=== PATIENT | female | born 1970 | race Caucasian/White ===

== ENCOUNTER 2017-03-28 09:22 | Day surgery (SDC) | payer OTHER ==
[2017-03-28] VITALS (11 sets, daily range): BP systolic 101–142; BP diastolic 51–80; PULSE 61–70; RESP 15–22; Ht 160 cm; Wt 1.0 kg
[~2017-03-28] VITALS: Ht 160 cm; Wt 1.0 kg
[~2017-03-28 09:22] MED LIST: CEFAZOLIN 1 GM INJ ONE; CEFAZOLIN 2 GM/50 ML (PMX) 50 ML IVPB ONE; SOD CHLORIDE 0.9% 1,000 ML IV SCH
[2017-03-28] MEDS ORDERED: LEVO88TA3 PO (10:30)
[2017-03-28] MEDS ORDERED: OMEP20CA16 PO (10:30)
[2017-03-28] MEDS ORDERED: ONDANSETRON 4 MG INJ ONE (12:22)
[2017-03-28] MEDS ORDERED: LIDOCAINE 2% (MDV) 20 ML INJ ONE (12:23)
[2017-03-28] MEDS ORDERED: BUPIVACAINE 0.5% (SDV) 30 ML INJ ONE (12:23)
--- NOTE | 2017-03-28 12:59 | OPR ---
Date/Time of Note Date/Time of Note DATE: 03/28/17 TIME: 12:56 Operative Report Procedure Date: Mar 28, 2017 Preoperative Diagnosis right leg and back mass Postoperative Diagnosis same Operation Performed 1. excision of back mass 3 cm incisions and 3 x 1 cm mass 2. excision of right leg mass 2 cm incision and 2 x 1 cm mass 3. localized adjacent tissue transfer with the use of skin flaps of 5 sq cm defect 4. therapeutic injection [place] [address] Surgeon: Justin SMALLS Specimens back mass and right leg mass Procedure Description Patient is taken to the OR and prepped and draped in usual sterile fashion. Surgical timeout was performed IV antibiotics are given. Local anesthesia was infiltrated into the back mass and the right leg mass. 15 blade is used to make an elliptical incision over the back mass. Dissection cautery was carried out the mass was circumferentially excised. Due to tissue defect localized adjacent tissue transfer with these of skin flaps was performed. Attention was paid to the right leg mass. 15 blade is used to make an elliptical incision around the mass. The mass was circumferentially excised using cautery. There is good hemostasis due to tissue defect localized adjacent tissue transfer to the skin flaps were performed. Closure with running 4-0 Monocryl. Dry dressings were applied. Justin SMALLS Mar 28, 2017 12:59
[2017-03-28] MEDS ORDERED: ACETAMINOPHEN/CODEINE #3 TAB PO ONE (13:00)
[2017-03-28] MEDS ORDERED: OXYCODONE/ACETAMINOPHEN (5/325) TAB PO PRN ×2 (13:00)
== END 2017-03-28 14:24 | disposition home or self-care (01) ==
LOC: SDS 09:22
PROVIDERS: ATTEND Surgery
DX: L72.11 Pilar cyst (principal); D23.71 Other benign neoplasm of skin of right lower limb, including hip
CPT/HCPCS: 14020; 88307; J0690; J2405; J3010

== ENCOUNTER 2018-10-09 08:44 | Day surgery (SDC) | payer OTHER ==
[2018-10-08 16:49] VITALS: BMI 31.2
[~2018-10-09] VITALS: Ht 160 cm; Wt 78.3 kg
[2018-10-09] VITALS (11 sets, daily range): BP systolic 106–128; BP diastolic 52–71; PULSE 69–93; RESP 16–23; Ht 160 cm; Wt 78.3 kg
[~2018-10-09 08:44] MED LIST changes: -CEFAZOLIN 1 GM INJ ONE; -CEFAZOLIN 2 GM/50 ML (PMX) 50 ML IVPB ONE; +DEXAMETHASONE 4 MG/ML 5 ML INJ ONE; +LEVO88TA3 PO; +METOCLOPRAMIDE 10 MG INJ ONE; +OMEP20CA16 PO; +SEVOFLURANE 15 MIN ONE; -SOD CHLORIDE 0.9% 1,000 ML IV SCH
[2018-10-09] MEDS ORDERED: CHOL100062 PO (09:43)
[2018-10-09] MEDS ORDERED: LIDOCAINE 1%/EPI (1:100,000) (MDV) 20 ML ONE (13:09)
[2018-10-09] MEDS ORDERED: POLYMYXIN/BACITRACIN 1L IRRIG ONE (13:09)
--- NOTE | 2018-10-09 13:53 | PREAC ---
Date/Time of Note Date/Time of Note DATE: 10/09/18 TIME: 13:52 Anesthesia Eval and Record Evaluation Time Pre-Procedure Interview DATE: 10/09/18 TIME: 13:52 Age 48 Sex female NPO: 8 hrs Preoperative diagnosis stress incontinence Planned procedure vaginal sling Past Medical History Past Medical History: None Surgery & Anesthesia Issues No known issue Meds Anticoagulation: No Beta Killian within 24 hr: No Reason Beta Ikllian not given: Pt. not on B-Killian Reported Medications Cholecalciferol* (Vitamin D3*) 1,000 Unit Tablet, 2000 UNIT PO DAILY, TAB 10/09/18 Omeprazole* (Omeprazole*) 20 Mg Capsule.dr, 20 MG PO DAILY, #30 CAP 03/28/17 Levothyroxine Sodium* (Levothyroxine Sodium*) 88 Mcg Tablet, 88 MCG PO BEFORE BREAKFAST, #30 TAB 03/28/17 Current Medications Influenza Virus Vaccine Quadrival (Fluzone) 0.5 ml ONCE ONCE IM* ; Start 10/10/18 at 09:00; Stop 10/10/18 at 09:01 Meds reviewed: Yes Allergies Coded Allergies: No Known Drug Allergies (Unverified Allergy, Unknown, 10/09/18) Allergies Reviewed: Yes Labs/Studies Labs Reviewed: Reviewed by anesthesiologist Result Diagram: 10/09/18 1000 10/09/18 1000 Laboratory Tests 10/09/18 10:00 test: Negative Studies: ECG Pre-procedure Exam Last vitals Vital Signs Date Temp Pulse Resp B/P (MAP) Pulse Ox O2 O2 Flow FiO2 Time Delivery Rate 10/09/18 97.7 69 16 106/56 100 Room Air 10:14 (73) Airway: Adequate mouth opening, Adequate thyromental dist Mallampati: Mallampati III Teeth: Normal Lung: Normal Heart: Normal ASA Physical Status ASA physical status: 2 Emergency: None Planned Anesthetic General/MAC: LMA Planned Pain Management Parenteral pain med, Local by surgeon Pre-operative Attestations Prior to commencing anesthesia and surgery, the patient was re-evaluated, there was verification of: *The patient's identity *The results of appropriate recent lab work and preoperative vital signs *The above evaluation not changing prior to induction *Anesthetic plan, risk benefits, alternative and complications discussed with patient/family; questions answered; patient/family understands, accepts and wishes to proceed. DREA BEASLEY MD Oct 09, 2018 13:53
[2018-10-09] MEDS ORDERED: FENTAnyl 50 MCG/ML VIAL ONE (13:55)
[2018-10-09] MEDS ORDERED: ONDANSETRON 4 MG INJ ONE (13:56)
[2018-10-09] MEDS ORDERED: MIDAZOLAM 1 MG/ML 2 ML INJ ONE (13:56)
[2018-10-09] MEDS ORDERED: LIDOCAINE 2% (SDV) 5 ML INJ ONE (13:56)
[2018-10-09] MEDS ORDERED: PROPOFOL 20 ML ONE (13:56)
[2018-10-09] MEDS ORDERED: HYDROmorphONE 1 MG/5 ML IV SYRINGE IV PRN ×2 (14:00)
[2018-10-09] MEDS ORDERED: FENTAnyl 50 MCG/ML VIAL IV PRN ×2 (14:00)
[2018-10-09] MEDS ORDERED: LEVALBUTEROL (NEB) 1.25 MG/0.5 ML AMP HHN PRN (14:00)
[2018-10-09] MEDS ORDERED: LORAZEPAM 2 MG INJ IV PRN (14:00)
[2018-10-09] MEDS ORDERED: ONDANSETRON 4 MG INJ IV PRN (14:00)
[2018-10-09] MEDS ORDERED: DIPHENHYDRAMINE 50 MG INJ IV PRN (14:00)
[2018-10-09] MEDS ORDERED: MIDAZOLAM 1 MG/ML 2 ML INJ IV PRN (14:00)
[2018-10-09] MEDS ORDERED: MEPERIDINE 25 MG INJ IV PRN (14:00)
[2018-10-09] MEDS ORDERED: KETOROLAC 30 MG INJ IV PRN (14:00)
--- NOTE | 2018-10-09 14:01 | HP ---
DATE OF ADMISSION: 10/09/2018 CHIEF COMPLAINT: Urinary leakage. HISTORY OF PRESENT ILLNESS: This is a 48-year-old female who has a history of urinary leakage. She reports that she leaks urine with sneezing, coughing, urgency and with intercourse. It is very bothe rsome to the patient. The patient has had this problem for the last 3 years ____ with cough, sneeze and sex. She occasionally has some urgency leak which is not as bothersome. She has taken oxybutyni n without resolution of her symptoms. The patient also complains of frequency, urgency, nocturia whi ch are worrisome with fluids. Her workup is as follows: In 11/2017 cystoscopy revealed normal bladder, no bladder neck contracture , urethral strictures. In 01/2018 urodynamics revealed early sensation of bladder filling; otherwise , normal bladder capacity, no instability. In 06/2018, the patient underwent another cystoscopy reve aling 250 mL bladder capacity. She did not leak with cough. PAST MEDICAL HISTORY: Herpes, gastritis, hypothyroidism, heart problem. PAST SURGICAL HISTORY: In 2002 had eye surgery, right knee cyst removal. FAMILY HISTORY: No history of cancer. SOCIAL HISTORY: The patient does not drink or smoke. ALLERGIES: THE PATIENT HAS UNSPECIFIC ____ LIKE ANESTHESIA ALLERGY, UNKNOWN EXACTLY WHAT THIS ENTAIL S. CURRENT MEDICATIONS: 1. Glucosamine. 2. Herbal medication for menopause. 3. Omeprazole. 4. Synthroid. PHYSICAL EXAMINATION: CONSTITUTIONAL: The patient appears to be in no acute distress. GASTROINTESTINAL: Abdomen is soft. Normal bowel sounds, nondistended, nontender. Hernia exam none noted. Liver and spleen are normal. GENITOURINARY: Kidneys have no CVA tenderness. Bladder has no fullness. Vaginal exam in my office revealed no cystocele. Urethra appeared to be normal. Urethral meatus was also normal in location. ASSESSMENT: 1. Stress urinary incontinence. 2. Urinary frequency and urgency. RECOMMENDATIONS: I have spoken with the patient in detail about the natural history biology and grad ing of stress incontinence. We have discussed various treatment options. Among these options, she u nderstands her choices include, but not limited to Kiegel exercises, transvaginal surgery, transabdom inal surgeries, wearing pads, urethral bulking agents. Among these options I have recommended, the p leatha has elected to undergo a transvaginal mid-urethral transobturator sling procedure with mesh an d cystoscopy. This procedure has been explained to the patient in detail. Risks and benefits have b een discussed. All of her questions have been answered. She understands that risks include, but not limited to infection, bleeding, damage to adjacent structures, heart problems, lung problems, possib ility of need for further surgery, DVT, PE, MS, CVA, nonresolution of symptoms, reoccurrence of sympt oms, need for other treatments, need for other surgeries, worsening of her frequency and urgency, con tinued urine leak, mesh erosion into various pelvic organs such as bowel, bladder, urethra, vagina, p ainful sexual intercourse, dissatisfaction with surgery. All of the patient's questions have been an swered, no guarantees given. She would like to proceed. Dictated By: NOE PUGH MD SR/NTS Conf#: [id number] DID#: [id number]
[2018-10-09] MEDS ORDERED: HYDROmorphONE 2 MG/ML SYG ONE (14:48)
[2018-10-09] MEDS ORDERED: CEFAZOLIN 1 GM INJ ONE (14:48)
--- NOTE | 2018-10-09 15:02 | SIPON ---
Date/Time of Note Date/Time of Note DATE: 10/09/18 TIME: 15:00 Operative Report Preoperative Diagnosis stress incontinence Postoperative Diagnosis stress incontinence Operation/Procedure Performed vaginal sling + mesh (transobturator) Surgeon see signature line assistant to the director none Anesthesia: general Estimated blood loss: 50 - 100 ml's Transfusion Required none Specimen none Grafts/Implants Mid urethral mesh ([employer] obtryx transobturator mesh) Complications none NOE PUGH Oct 09, 2018 15:02
--- NOTE | 2018-10-09 15:03 | PDOCDIS ---
Discharge Instructions DIAGNOSIS Discharge Diagnosis stress incontinence CONDITION [id number] Patient Condition: [id number] Good HOME CARE INSTRUCTIONS: [id number] Diet Instructions: [id number] Regular ACTIVITY: [id number] Activity Restrictions: [id number] Slowly Increase Activity Avoid heavy lifting No Sexual Activity [id number] Bathing Restrictions: [id number] Shower FOLLOW UP/APPOINTMENTS Follow-up Plan 1 week NOE Bowser Oct 09, 2018 15:03
--- NOTE | 2018-10-09 15:08 | DS ---
Date/Time of Note Date/Time of Note DATE: 10/09/18 TIME: 15:03 Discharge Summary Admission/Discharge Info Admit Date/Time 10/09/18 Discharge Date/Time 10/09/18 Discharge Diagnosis stress incontinence Patient Condition: Good Consults none Procedures transobturator mid urethral vaginal sling + mesh Cystoscopy Hx of Present Illness pt with hx of urine leak with sneeze/cough and sex Hospital Course Pt underwent above listed operation. Once pt was stable, tolerating diet, remaining afebrile and pain was well controlled, she was DC'd home Pt was given Rx for Tylenol 3 and cipro Home Meds Reported Medications Cholecalciferol* (Vitamin D3*) 1,000 Unit Tablet, 2000 UNIT PO DAILY, TAB 10/09/18 Omeprazole* (Omeprazole*) 20 Mg Capsule., 20 MG PO DAILY, #30 CAP 03/28/17 Levothyroxine Sodium* (Levothyroxine Sodium*) 88 Mcg Tablet, 88 MCG PO BEFORE BREAKFAST, #30 TAB 03/28/17 Follow-up Plan [address] candelaria office Primary Care Provider Not On Staff Doctor Time spent on discharge: < 30 minutes (Pt given Rx for Tylenol 3 and cipro) Pending Labs Laboratory Tests Test 10/09/18 10:00 White Blood Count 6.6 10^3/ul (4.8-10.8) Red Blood Count 4.51 10^6/ul (4.20-5.40) Hemoglobin 13.7 g/dl (12.0-16.0) Hematocrit 41.3 % (37.0-47.0) Mean Corpuscular Volume 91.6 fl (82.0-101.0) Mean Corpuscular Hemoglobin 30.4 pg (29.0-33.0) Mean Corpuscular Hemoglobin Concent 33.2 g/dl (32.0-37.0) Red Cell Distribution Width 13.6 % (11.5-14.5) Platelet Count 259 10^3/UL (140-415) Mean Platelet Volume 11.2 fl (7.4-10.4) Immature Granulocytes % 0.200 % (0.001-0.429) Neutrophils % 69.8 % (39.0-77.0) Lymphocytes % 21.7 % (15.0-51.0) Monocytes % 6.4 % (0.0-11.0) Eosinophils % 1.4 % (0.0-7.0) Basophils % 0.5 % (0.0-2.0) Nucleated Red Blood Cells % 0.0 /100WBC (0.0-0.0) Immature Granulocytes # 0.010 10^3/ul (0.0-0.031) Neutrophils # 4.6 10^3/ul (1.6-7.5) Lymphocytes # 1.4 10^3/ul (0.8-2.9) Monocytes # 0.4 10^3/ul (0.3-0.9) Eosinophils # 0.1 10^3/ul (0.0-0.5) Basophils # 0.0 10^3/ul (0.0-0.1) Nucleated Red Blood Cells # 0.0 10^3/ul (0.0-0.0) Prothrombin Time 11.8 Sec (11.9-14.9) Prothrombin Time Ratio 0.9 INR International Normalized Ratio 0.86 Activated Partial Thromboplast Time 26.9 Sec (23.0-35.0) Sodium Level 139 mmol/L (135-144) Potassium Level 4.3 mmol/L (3.5-5.1) Chloride Level 101 mmol/L (97-110) Carbon Dioxide Level 27 mmol/L (21-31) Anion Gap 11 (5-13) Blood Urea Nitrogen 18 mg/dl (7-20) Creatinine 0.61 mg/dl (0.44-1.00) Est Glomerular Filtrat Rate mL/min > 60 mL/min (>60) Glucose Level 97 mg/dl (70-220) Calcium Level 9.1 mg/dl (8.4-10.2) Total Bilirubin 0.3 mg/dl (0.2-1.3) Direct Bilirubin 0.00 mg/dl (0.00-0.20) Indirect Bilirubin 0.3 mg/dl (0-1.1) Aspartate Amino Transf (AST/SGOT) 32 IU/L (15-46) Alanine Aminotransferase (ALT/SGPT) 18 IU/L (13-69) Alkaline Phosphatase 58 IU/L (42-121) Total Protein 8.3 g/dl (6.1-8.1) Albumin 4.5 g/dl (3.3-4.9) Globulin 3.80 g/dl (1.3-3.2) Albumin/Globulin Ratio 1.18 NOE CANDELARIA Oct 09, 2018 15:08
--- NOTE | 2018-10-09 17:14 | OPR ---
DATE OF OPERATION: 10/09/2018 OPERATING SURGEON: Noe Santos MD MOTORIZED SQUAD SERGEANT: None. PREOPERATIVE DIAGNOSIS: Stress incontinence. POSTOPERATIVE DIAGNOSIS: Stress incontinence. OPERATIONS PERFORMED: 1. Transobturator mid urethral vaginal sling. 2. Insertion of mesh. 3. Cystoscopy. INDICATIONS FOR PROCEDURE: This patient has a history of stress urinary incontinence. She is schedu led to undergo the above said procedure. The procedure has been explained to the patient in detail. Risks and benefits have been discussed. All of her questions have been answered, no guarantees give n. She would like to proceed. FINDINGS: The [employer]bt[employer]x [employer] transobturator mesh was used. Cystoscopy revealed no evidenc e of urethral injury. No mesh in the urethra, bladder neck or bladder. PROCEDURE IN DETAIL: The patient was brought to the operating room, underwent general anesthesia. S he was placed in lithotomy position. Abdomen, perineum and genitalia were prepped and draped in usua l sterile fashion. The anterior vaginal wall and the lateral vaginal areas were injected with 20 mL of lidocaine with epinephrine. Incision was made along the anterior vaginal wall, 0.5 cm to 1 cm pro ximal to the urethral meatus. Dissection was then carried down to the periurethral tissues. Urethra was kept intact. Periurethral tissues were dissected. The ureter was carefully dissected off the a nterior vaginal wall. Dissection was carried towards the bladder neck. Next, the tissues lateral to the ureter were dissected. Dissection was carried in this area until the pubic arch was palpable bi laterally. Incisions were made in the inner thigh area 2 cm below the adductor longus at the level of the clitor is bilaterally. Next, the transobturator trocar was advanced through this incision from the inner th igh incision onto the pubic arch. The bone of the pubis was palpated. The trocar was then passed ar ound the arch of the pubic bone and into the obturator space. Next, the tip of the trocar was tavia t through the endopelvic fascia and out of the vaginal incision lateral to the urethra. This was don e bilaterally. The mesh was attached to the trocar. The trocar was retracted. The mesh was allowed to lie flat against the mid urethra. Care was taken not to twist the mesh. Mesh was examined. It was lying flat against the mid urethra in an excellent location. Cystoscopy was performed. The rigid cystoscope was placed transurethrally. Urethra was intact and n ormal. The bladder neck was intact. There was no mesh anywhere in the urethra or the bladder neck. Bladder was then examined. The bladder did not contain any mesh or injury. The urethra, bladder ne ck and bladder were examined circumferentially in 360-degree manner. The lateral tidwell, posterior an d anterior tidwell were all examined and no mesh erosion into the bladder, urethra or bladder neck were seen. Cystoscope was discontinued with the bladder senior care full with irrigation. At this point, the mesh was tightened. An instrument was passed between the urethra and the mesh as the mesh was tightened. Next, excess mesh was excised and allowed to retract in the inner thigh inci sions. around the mesh was also removed. At this point, the inner thigh incisions were closed with 4-0 chromic simple suture. The perivaginal tissues were brought together using 2-0 Vicryl inte rrupted suture along the urethra. Next, the vaginal mucosa was approximated using 2-0 Vicryl running suture. Vaginal packing was placed. The patient was placed back in a supine position. She was miki kened, extubated and taken to recovery room in stable condition without a Burciaga catheter. POSTOPERATIVE CONDITION: Stable. COMPLICATIONS: None. ESTIMATED BLOOD LOSS: 100 mL. BLOOD ADMINISTERED: None. SPECIMENS SENT TO LABORATORY: None. DRAINS AND PACKS: None. IMPLANTS: Suburethral implant is a transvaginal mesh. Dictated By: NOE SANTOS MD, SR/ANNA Conf#: [id number] DID#: [id number]
[2018-10-10] MEDS ORDERED: INFLUENZA VIRUS VACCINE 0.5 ML (DISPENSING) IM* ONE (09:00)
--- NOTE | 2018-10-14 10:37 | PAC ---
Date/Time of Note Date/Time of Note DATE: 10/14/18 TIME: 10:37 Post-Anesthesia Notes Post-Anesthesia Note Activity: WNL Respiratory function: WNL Cardiovascular function: WNL Mental status: Baseline Pain reasonably controlled: Yes Hydration appropriate: Yes Nausea/Vomiting absent: Yes DREA BEASLEY MD Oct 14, 2018 10:37
== END 2018-10-09 17:20 | disposition home or self-care (01) ==
LOC: SDS 08:44
PROVIDERS: ATTEND Surgery Surgical Oncology
DX: N39.3 Stress incontinence (female) (male) (principal); E03.9 Hypothyroidism, unspecified
CPT/HCPCS: 51992; 80053; 85025; 85610; 85730; J0690; J1170; J2250; J2405; J3010; C1771; J1100; J2765